=== PATIENT | female | born 1965 | race Caucasian/White ===

== ENCOUNTER 2017-08-29 19:57 | Emergency (ER) | payer BC, MEDICAID ==
[~2017-08-29] VITALS: Ht 170.2 cm; Wt 88.0 kg
[2017-08-29 22:14] VITALS: BP 140/75
== END 2017-08-29 23:11 | disposition home or self-care (01) ==
LOC: ER 21:50
DX: T78.1XXA Other adverse food reactions, not elsewhere classified, initial encounter (principal); X58.XXXA Exposure to other specified factors, initial encounter
CPT/HCPCS: 99283